=== PATIENT | male | born 2000 | race Caucasian/White ===

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

== ENCOUNTER 2019-07-20 17:17 | Emergency (ER) | payer SELFPAY ==
[~2019-07-20] VITALS: Ht 185.4 cm; Wt 149.7 kg
[~2019-07-20 17:17] MED LIST changes: +NEOPOLHCSU LEFTEAR
[2019-07-20] MEDS ORDERED: Cleocin HCl300 MG PO (17:41)
== END 2019-07-20 17:41 | disposition home or self-care (01) ==
LOC: ER 17:17
DX: L02.211 Cutaneous abscess of abdominal wall (principal); Z88.2 Allergy status to sulfonamides; Z88.5 Allergy status to narcotic agent
CPT/HCPCS: 99282